=== PATIENT | male | born 2000 | race Hispanic/Latino ===

== ENCOUNTER 2022-12-23 14:06 | Emergency (ER) | payer OTHER ==
[2022-12-23] MEDS ORDERED: Dexamethasone 4 MG TAB ONE (16:23)
[2022-12-23 18:02] LABS: SARS-CoV-2 NAA Rapid Test Not Detected (NotDetected)
== END 2022-12-23 16:15 | disposition home or self-care (01) ==
LOC: ERS 14:06
DX: N39.0 Urinary tract infection, site not specified (principal); F17.290 Nicotine dependence, other tobacco product, uncomplicated; Z20.822 Contact with and (suspected) exposure to COVID-19
CPT/HCPCS: 99283; J8540